=== PATIENT | female | born 2000 | race Caucasian/White ===

== ENCOUNTER 2024-11-17 08:26 | Emergency (ER) | payer MEDICAID ==
[~2024-11-17] VITALS: Ht 157.5 cm; Wt 75.0 kg
[2024-11-17 08:30] VITALS: O2SAT 100
[2024-11-17 08:31] VITALS: BP 126/77; PULSE 59; RESP 18; TEMP 36.8; O2SAT 99
[2024-11-17] MEDS ORDERED: BALANCED SALT IRRIG SOLN 15ML IR ONE (08:45)
[2024-11-17] MEDS ORDERED: FLUORESCEIN SODIUM 1MG/STRIP RIGHTEYE ONE (08:45)
[2024-11-17] MEDS ORDERED: TETRACAINE 0.5% OPHTH DROPS 4ML RIGHTEYE ONE (08:45)
[2024-11-17] MEDS: ACETAMINOPHEN 325MG TABLET PO STA (10:10)
[2024-11-17] MEDS ORDERED: FLUORESCEIN SODIUM 1MG/STRIP RIGHTEYE NR (10:30)
[2024-11-17] MEDS ORDERED: TETRACAINE 0.5% OPHTH DROPS 4ML RIGHTEYE NR (10:30)
[2024-11-17] MEDS ORDERED: CIPR2.5D20 RIGHTEYE (11:22)
[2024-11-17] MEDS ORDERED: NAPR-681 MT (12:24)
[2024-11-17] MEDS ORDERED: ERYT1OIN6 RIGHTEYE (12:24)
== END 2024-11-17 12:56 | disposition home or self-care (01) ==
LOC: ER 08:38
DX: H10.211 Acute toxic conjunctivitis, right eye (principal); I10 Essential (primary) hypertension; Z79.899 Other long term (current) drug therapy
CPT/HCPCS: 99283

== ENCOUNTER 2024-11-20 18:05 | Emergency (ER) | payer MEDICAID, OTHER ==
[~2024-11-20] VITALS: Ht 157.5 cm; Wt 74.8 kg
[~2024-11-20 18:05] MED LIST: ERYT1OIN6 RIGHTEYE; NAPR-681 MT
[2024-11-20 18:08] VITALS: BP 108/66; PULSE 58; RESP 16; TEMP 36.9; O2SAT 100
[2024-11-20 18:14] VITALS: O2SAT 100
== END 2024-11-20 19:52 | disposition left against medical advice (07) ==
LOC: ER 18:05
DX: H57.89 Other specified disorders of eye and adnexa (principal); Z53.21 Procedure and treatment not carried out due to patient leaving prior to being seen by health care provider